=== PATIENT | female | born 1955 | race Caucasian/White ===

== ENCOUNTER 2022-05-12 08:00 | Outpatient (CLI) | payer MEDICARE, MEDICAID ==
[2022-05-11 11:36] LABS: BASOPHILS # (AUTO) 0.1 X10'3 (0-0.2); BASOPHILS % (AUTO) 1.1 % (0-1); EOSINOPHILS # (AUTO) 0.2 X10'3 (0-0.9); EOSINOPHILS % (AUTO) 2.7 % (0-6); LYMPHOCYTES # (AUTO) 1.3 X10'3 (1.1-4.8); MEAN CORPUSCULAR HEMOGLOBIN 32.7 PG (27.0-31.0); MEAN CORPUSCULAR HGB CONC 33.8 g/dL (33.0-36.5); MEAN CORPUSCULAR VOLUME 96.8 FL (78-98); MEAN PLATELET VOLUME 7.5 FL (7.4-10.4); MONOCYTES # (AUTO) 0.4 X10'3 (0-0.9); MONOCYTES % (AUTO) 5.9 % (2-12); NEUTROPHILS # (AUTO) 4.2 X10'3 (1.8-7.7); NEUTROPHILS % (AUTO) 69.3 % (42-75); PRE OP HEMATOCRIT 39.4 % (35.0-45.0); PRE OP HEMOGLOBIN 13.3 g/dL (12.0-16.0); PRE OP PLATELET COUNT 234 X10'3 (140-440); RED BLOOD COUNT 4.07 X10'6 (4.20-5.60); RED CELL DISTRIBUTION WIDTH 14.3 % (11.5-14.5)
[2022-05-11 11:36] LABS: CLARITY,URINE CLEAR (Clear); COLOR,URINE YELLOW (Yellow); GLUCOSE, URINE NEGATIVE (Neg); KETONES,URINE NEGATIVE (Neg); LEUKOCYTE ESTERASE ,URINE NEGATIVE (Neg); NITRITES, URINE NEGATIVE (Neg); OCCULT BLOOD,URINE NEGATIVE (Neg); PH,URINE 7.5 (4.8-8.0); PROTEIN,URINE NEGATIVE (Neg); UROBILINOGEN,URINE 0.2 E.U/dL (0.2-1.0)
[2022-05-11 11:40] LABS: UA COLLECTION TYPE CLN CATCH MIDSTREAM
[2022-05-11 11:47] LABS: PRE OP PROTIME 10.4 SECONDS (9.0-12.0)
[2022-05-11 11:50] LABS: ALBUMIN 3.6 G/DL (3.4-5.0); ALBUMIN/GLOBULIN RATIO 0.9 (1.1-1.5); ALKALINE PHOSPHATASE 58 IU/L (46-116); BLOOD UREA NITROGEN 19 MG/DL (7-18); BUN/CREATININE RATIO 22.6 (10.0-20.0); CALCIUM 8.9 MG/DL (8.5-10.1); CHLORIDE 102 MMOL/L (99-107); CREATININE 0.84 MG/DL (0.40-0.90); PRE OP ALT 24 U/L (30-65); PRE OP ANION GAP 7 (8-16); PRE OP AST 18 U/L (10-37); PRE OP BILIRUB, TOTAL 0.3 MG/DL (0.0-1.0); PRE OP POTASSIUM 4.2 MMOL/L (3.4-5.1); PRE OP SODIUM 136 MMOL/L (135-145); TOTAL CARBON DIOXIDE 26.7 MMOL/L (24-32); TOTAL PROTEIN 7.4 G/DL (6.4-8.2); eGFR 67 ML/MIN
[2022-05-11 12:22] LABS: PRE OP GLUCOSE 102 MG/DL (70-104)
[~2022-05-12 08:00] MED LIST: ACET-2615 PO; LEVO137T19 PO; LISI5TAB22 PO; OXYC10TA47 PO; PRED10TA23 PO; TOCI162S; [UNRECOGNIZED DRUG - CODE] PO
== END 2022-05-12 23:00 | disposition home or self-care (01) ==
LOC: LAB 08:00 → EDSTATUS 05-18 07:30
PROVIDERS: ATTEND Specialist
DX: M06.9 Rheumatoid arthritis, unspecified (principal); M25.512 Pain in left shoulder; Z01.818 Encounter for other preprocedural examination; I10 Essential (primary) hypertension; Z86.718 Personal history of other venous thrombosis and embolism; I82.599 Chronic embolism and thrombosis of other specified deep vein of unspecified lower extremity
CPT/HCPCS: 36415; 80053; 81003; 85025; 85610; 85730; 86885; 86900; 86901; 87081